=== PATIENT | male | born 1975 | race Two or more races ===

== ENCOUNTER 2018-02-19 11:55 | Emergency (ER) | payer OTHER ==
[2018-02-19] MEDS ORDERED: DIPH/PERTUSS(ACELL)/TETANUS VAC/PF 0.5 ML SYR (>=10YO) IM ONE (12:21)
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
[2018-02-19] MEDS ORDERED: IBUPROFEN 400 MG TABLET PO ONE (13:43)
[2018-02-19] MEDS ORDERED: OXYCODONE-ACETAMINOPHEN 5-325 MG TABLET PO ONE (13:43)
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
[2018-02-19 15:21] VITALS: BP 127/93
== END 2018-02-19 15:20 | disposition home or self-care (01) ==
LOC: ER 11:55
DX: S80.12XA Contusion of left lower leg, initial encounter (principal); M54.5 Low back pain; M54.2 Cervicalgia; M79.18 Myalgia, other site; V48.5XXA Car driver injured in noncollision transport accident in traffic accident, initial encounter; Y93.89 Activity, other specified; H93.19 Tinnitus, unspecified ear; H93.8X2 Other specified disorders of left ear
CPT/HCPCS: 99284; 73610; 71046; 73120; 72110; 72070; 73590; 70450; 70486; 72125; L0120; J3490